=== PATIENT | female | born 1985 | race Hispanic/Latino ===

== ENCOUNTER 2016-10-02 07:33 | Inpatient (IN) | payer OTHER ==
[~2016-10-02] VITALS: Ht 162.6 cm; Wt 101.8 kg
[2016-10-02] VITALS (11 sets, daily range): BP systolic 118–139; BP diastolic 59–80
[~2016-10-02 07:33] MED LIST: MACROBID100 MG PO; MOTRIN800 MG PO; PRENATAL TABLE1 EAC3 PO
[2016-10-02 09:14] LABS: POINT-OF-CARE METER ID UU14188576
[2016-10-02 09:39] LABS: EOSINOPHIL (%) 2.4 % (0-5); EOSINOPHIL COUNT 0.2 K/uL (0-0.3); HEMATOCRIT 35.1 % (36.0-46.0); IMMATURE GRANULOCYTE (%) 0.6 % (0.0-0.7); IMMATURE GRANULOCYTE COUNT 0.5 K/uL; LYMPHOCYTE COUNT 1.9 K/uL (1.0-2.8); MCH 29.8 PG (29.0-34.0); MCHC 34.5 G/DL (30.0-36.0); MCV 86.5 FL (83-99); MEAN PLAT.VOLUME 11.9 uM^3 (9.5-12.4); MONOCYTE (%) 7.4 % (3-12); MONOCYTE COUNT 0.7 K/uL (0-0.8); NEUTROPHIL (%) 68.1 % (45-76); PLATELET COUNT 156 K/uL (156-360); RBC DIS.WIDTH-CV 13.4 % (11.8-14.6); RED BLOOD COUNT 4.06 M/uL (3.80-5.20); WHITE BLOOD COUNT 8.8 K/uL (4.1-10.2)
[2016-10-02 15:48] LABS: POINT-OF-CARE METER ID UU14188576
[2016-10-02] MEDS ORDERED: GLYBURIDE2.5 MG PO (19:10)
[2016-10-02] MEDS ORDERED: DICLEGIS DR 101 EACH PO (19:10)
[2016-10-02] MEDS ORDERED: PRENATAL TABLE1 EACH PO (19:10)
[2016-10-02 20:52] LABS: POINT-OF-CARE METER ID UU14188576
[2016-10-03] VITALS (16 sets, daily range): BP systolic 104–211; BP diastolic 51–147
[2016-10-03 05:44] LABS: POINT-OF-CARE METER ID UU14188576
[2016-10-04 05:33] LABS: EOSINOPHIL (%) 1.3 % (0-5); EOSINOPHIL COUNT 0.1 K/uL (0-0.3); HEMATOCRIT 33.4 % (36.0-46.0); IMMATURE GRANULOCYTE (%) 0.9 % (0.0-0.7); IMMATURE GRANULOCYTE COUNT 0.1 K/uL; LYMPHOCYTE COUNT 2.5 K/uL (1.0-2.8); MCH 28.4 PG (29.0-34.0); MCV 88.6 FL (83-99); MEAN PLAT.VOLUME 11.6 uM^3 (9.5-12.4); MONOCYTE (%) 7.3 % (3-12); MONOCYTE COUNT 0.7 K/uL (0-0.8); NEUTROPHIL (%) 62.9 % (45-76); NEUTROPHIL COUNT 5.8 K/uL (1.8-6.4); PLATELET COUNT 147 K/uL (156-360); RBC DIS.WIDTH-CV 13.8 % (11.8-14.6); RBC DIS.WIDTH-SD 44.7 % (39-53); RED BLOOD COUNT 3.77 M/uL (3.80-5.20); WHITE BLOOD COUNT 9.2 K/uL (4.1-10.2)
[2016-10-04 07:37] VITALS: BP 127/61
[2016-10-04 15:54] VITALS: BP 122/85
[2016-10-04 23:23] VITALS: BP 122/73
[2016-10-05 05:56] VITALS: BP 129/85
[2016-10-05] MEDS ORDERED: IBUPROFEN800 MG PO (13:05)
== END 2016-10-05 15:59 | disposition home or self-care (01) | DRG 775 ==
LOC: LDRP-OP → 2WEST 07:34 → LDRP-OP 22:58 → 2WEST 10-03 07:02 → LDRP-OP 11-09 22:16
PROVIDERS: Advanced Practice Midwife; Obstetrics & Gynecology Obstetrics
PROC: 3E0P7GC Introduction of Other Therapeutic Substance into Female Reproductive, Via Natural or Artificial Opening (ICD-10-PCS; principal; 2016-10-03)
PROC: 0HQ9XZZ Repair Perineum Skin, External Approach (ICD-10-PCS; principal; 2016-10-03)
PROC: 00HU33Z Insertion of Infusion Device into Spinal Canal, Percutaneous Approach (ICD-10-PCS; principal; 2016-10-03)
PROC: 10E0XZZ Delivery of Products of Conception, External Approach (ICD-10-PCS; principal; 2016-10-03)
PROC: 10907ZC Drainage of Amniotic Fluid, Therapeutic from Products of Conception, Via Natural or Artificial Opening (ICD-10-PCS; principal; 2016-10-03)
PROC: 3E0R3CZ (ICD-10-PCS; principal; 2016-10-03)
DX: O24.429 Gestational diabetes mellitus in childbirth, unspecified control (principal); O99.824 Streptococcus B carrier state complicating childbirth; O70.0 First degree perineal laceration during delivery; O69.89X0 Labor and delivery complicated by other cord complications, not applicable or unspecified; O99.214 Obesity complicating childbirth; E66.9 Obesity, unspecified; Z37.0 Single live birth; Z3A.39 39 weeks gestation of pregnancy
CPT/HCPCS: 82948; 85025; 88307; C1755; G0378; J0595; J2540; J7120

== ENCOUNTER 2016-10-08 09:49 | Emergency (ER) | payer OTHER ==
[~2016-10-08] VITALS: Ht 160 cm; Wt 94.3 kg
[~2016-10-08 09:49] MED LIST changes: +DICLEGIS DR 101 EACH PO; +GLYBURIDE2.5 MG PO; +IBUPROFEN800 MG PO; +PRENATAL TABLE1 EACH PO
[2016-10-08 10:53] LABS: HEMATOCRIT 35.2 % (36.0-46.0); MCH 29.7 PG (29.0-34.0); MCHC 33.8 G/DL (30.0-36.0); MCV 87.8 FL (83-99); RBC DIS.WIDTH-CV 13.8 % (11.8-14.6); RBC DIS.WIDTH-SD 43.2 % (39-53); RED BLOOD COUNT 4.01 M/uL (3.80-5.20); WHITE BLOOD COUNT 7.4 K/uL (4.1-10.2)
[2016-10-08 10:57] LABS: MEAN PLAT.VOLUME 11.3 uM^3 (9.5-12.4); PLATELET COUNT 197 K/uL (156-360)
[2016-10-08 11:03] LABS: CHLORIDE 110 mEq/L (99-109); POTASSIUM 4.2 mEq/L (3.7-5.4); SODIUM 140 mEq/L (136-147)
[2016-10-08 11:04] LABS: MAGNESIUM 1.8 mg/dL (1.3-2.7)
[2016-10-08 11:06] LABS: GLUCOSE 84 mg/dL (70-99)
[2016-10-08 11:07] LABS: ANION GAP 9 MEQ/L (2-14)
[2016-10-08 11:08] LABS: TOTAL BILIRUBIN 0.3 mg/dL (0.0-1.0)
[2016-10-08 11:09] LABS: ALKALINE PHOSPHATASE 144 IU/L (3-129)
[2016-10-08 11:10] LABS: GFR ESTIMATE (CALCULATED) > 59 mL/min/
[2016-10-08 11:11] LABS: UREA NITROGEN (BUN) 8 mg/dL (9-23)
[2016-10-08 13:03] LABS: ADD MIUA? YES; BILIRUBIN NEGATIVE; BLOOD LARGE; COLOR YELLOW ((YELLOW)); GLUCOSE (STRIP) NEGATIVE; KETONES NEGATIVE; LEUKOCYTES LARGE; NITRITE NEGATIVE; PROTEIN (STRIP) 30; SPECIFIC GRAVITY 1.009 (1.000-1.030); UROBILINOGEN 0.2 MG/DL (0.2-1.0)
[2016-10-08 13:20] LABS: BACTERIA RARE /HPF; EPITHELIAL CELLS 2+ /HPF; MUCUS TRACE /LPF; RED BLOOD CELLS TNTC /HPF (0-5); UCUL ADDED? YES; WHITE BLOOD CELLS TNTC /HPF (0-5)
[2016-10-08 17:38] VITALS: BP 144/66
== END 2016-10-08 17:39 | disposition home or self-care (01) ==
LOC: EME 09:49
PROVIDERS: Nurse Practitioner Family
PROC: 3E0S3GC Introduction of Other Therapeutic Substance into Epidural Space, Percutaneous Approach (ICD-10-PCS; principal; 2016-10-08)
DX: O89.4 Spinal and epidural anesthesia-induced headache during the puerperium (principal); O9A.23 Injury, poisoning and certain other consequences of external causes complicating the puerperium; S29.012A Strain of muscle and tendon of back wall of thorax, initial encounter; X58.XXXA Exposure to other specified factors, initial encounter
CPT/HCPCS: 77003; 80053; 81003; 83735; 85027; 87086; 99281; 99285; C1755; J3030; J7030

== ENCOUNTER 2016-11-02 12:31 | Emergency (ER) | payer OTHER ==
[~2016-11-02] VITALS: Ht 162.6 cm; Wt 89.1 kg
[2016-11-02 13:37] LABS: HEMATOCRIT 45.3 % (36.0-46.0); MCH 28.5 PG (29.0-34.0); PLATELET COUNT 197 K/uL (156-360); RBC DIS.WIDTH-CV 12.5 % (11.8-14.6); WHITE BLOOD COUNT 5.5 K/uL (4.1-10.2)
[2016-11-02 13:49] LABS: CHLORIDE 104 mEq/L (99-109); SODIUM 138 mEq/L (136-147)
[2016-11-02 13:50] LABS: RED BLOOD COUNT 5.09 M/uL (3.80-5.20)
[2016-11-02 13:51] LABS: GLUCOSE 94 mg/dL (70-99)
[2016-11-02 13:52] LABS: ANION GAP 12 MEQ/L (2-14)
[2016-11-02 13:53] LABS: TOTAL BILIRUBIN 0.5 mg/dL (0.0-1.0)
[2016-11-02 13:55] LABS: ALKALINE PHOSPHATASE 137 IU/L (3-129); GFR ESTIMATE (CALCULATED) > 59 mL/min/
[2016-11-02 13:56] LABS: UREA NITROGEN (BUN) 8 mg/dL (9-23)
[2016-11-02 14:03] LABS: QUANTITATIVE HCG < 4.0 MIU/ML
[2016-11-02 15:39] LABS: LIPASE 21 U/L (1.0-51.0)
[2016-11-02 15:58] LABS: BILIRUBIN NEGATIVE; BLOOD NEGATIVE; COLOR YELLOW ((YELLOW)); GLUCOSE (STRIP) NEGATIVE; KETONES NEGATIVE; LEUKOCYTES NEGATIVE; NITRITE NEGATIVE; PROTEIN (STRIP) 30; SPECIFIC GRAVITY 1.024 (1.000-1.030); UROBILINOGEN 0.2 MG/DL (0.2-1.0)
[2016-11-02 16:12] LABS: ADD MIUA? NO; UCUL ADDED? NO
[2016-11-02] MEDS ORDERED: ZOFRAN ODT4 MG PO (16:22)
[2016-11-02 16:39] VITALS: BP 120/79
== END 2016-11-02 16:40 | disposition home or self-care (01) ==
LOC: EXP 12:31 → EME 12:31 → EXP 16:40
DX: R11.2 Nausea with vomiting, unspecified (principal); R19.7 Diarrhea, unspecified; R10.9 Unspecified abdominal pain; M54.5 Low back pain; R00.0 Tachycardia, unspecified
CPT/HCPCS: 80053; 81003; 83690; 84702; 85027; 99281; 99284